=== PATIENT | male | born 1990 | race African-American/Black ===

== ENCOUNTER 2018-11-27 10:12 | Emergency (ER) | payer SELFPAY ==
[~2018-11-27 10:12] MED LIST: Propofol* 100 ML IV SCH
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
[2018-11-27 13:56] VITALS: BP 151/78
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
== END 2018-11-27 13:54 | disposition short-term general hospital (02) ==
LOC: EDBD → ED 10:12
DX: S21.201A Unspecified open wound of right back wall of thorax without penetration into thoracic cavity, initial encounter (principal); X93.XXXA Assault by handgun discharge, initial encounter; Y92.9 Unspecified place or not applicable
CPT/HCPCS: 31500; 36415; 51701; 71045; 86850; 86900; 86901; 86922; 86965; 99285; P9012; P9017; P9040